=== PATIENT | female | born 1985 ===

== ENCOUNTER → 2016-05-08 | Outpatient (CLI) | payer OTHER ==
[~2016-05-08] MED LIST: CLR10 PO; MULT-513 PO; TRVHP PO
== END | disposition home or self-care (01) ==
LOC: C.PAPS 14:52
PROVIDERS: ATTEND Obstetrics & Gynecology
DX: Z01.419 Encounter for gynecological examination (general) (routine) without abnormal findings (principal)

== ENCOUNTER 2023-12-04 08:40 | Inpatient (IN) ==
--- NOTE | 2023-12-01 12:52 | Anesthesiology Consultation ---
Date of Service December 01, 2023 Assessment & Plan (1) Encounter for pre-operative examination: - Per dog sitter on 12/01/23: No known infectious disease contacts, current infectious disease symptoms in past 10 days or COVID positive test result in the past 30 days. Chart Review Chart Review: carpentry professional initiated History Surgery Operation Date: 12/07/23 07:30 Proposed Procedures p Section (Delivery of Baby Through Abdominal Incision) - Claudine Morris, Height/Weight Height: 5 ft 6 in Weight: 97.522 kg Allergies Allergy/AdvReac Type Severity Reaction Status Date / Time No Known Allergies Allergy Verified 12/01/23 12:34 Medications Home Medications Medication Instructions Recorded Confirmed Last Taken xp-cr-igzd-FA-Ca carb-vit K 1 tab PO DAILY 04/24/23 12/01/23 Unknown [Women's Multivitamin] Past Medical History Medical History (Updated 12/01/23 @ 12:51 by Tamanna Malik PA-C) Gestational diabetes with current (2023), just monitoring, no meds History of anesthesia reaction 2020, w/previous her bp dropped very low and had to have it rechecked every 2 hours following; done at [facility] Varicella vaccination hx Past Family History Family History Family/Other Breast cancer Denies family history of Ovarian cancer Colorectal cancer Past Surgical History Surgical History H/O section Social History Smoking Status: Never smoker Do You Dip or Chew Tobacco: No Hx Alcohol Use: No Hx Substance Use: No substance use type: does not use
--- NOTE | 2023-12-04 17:16 | History & Physical Report ---
Date of Service December 04, 2023 Assessment & Plan (1) Previous delivery affecting , antepartum: Plan: Plan for repeat section if not in labor at presentation to L&D. Reviewed consent in office, questions answered. History of Present Illness Chief Complaint: repeat section Primary Care Provider: Heide Short MD 38yo with EDC 12/10/23, plans for repeat section. AMA Weekly NST's @ 36 weeks Previous - plans for and default at 40w. C/S SCHEDULED FOR 12/07/[address] PHELPS C/S RESCHEDULED TO 12/04/[address] BELL C/S RESCHEDULED AGAIN TO 12/07/[address] PHELPS GBS+ in urine *Tx in labor Gestational Diabetes Growth u/s's q 4 weeks Allergies Allergy/AdvReac Type Severity Reaction Status Date / Time No Known Allergies Allergy Verified 12/04/23 10:40 Home Medications Medication Instructions Recorded Confirmed Type cl-pp-bqnd-FA-Ca carb-vit K 1 tab PO DAILY 04/24/23 12/04/23 History [Women's Multivitamin] Patient History Medical History (Updated 12/01/23 @ 12:51 by Tamanna Malik PA-C) Gestational diabetes with current (2023), just monitoring, no meds History of anesthesia reaction 2020, w/previous her bp dropped very low and had to have it rechecked every 2 hours following; done at [facility] Varicella vaccination hx Surgical History H/O section Family History Family/Other Breast cancer Denies family history of Ovarian cancer Colorectal cancer Social History (Updated 04/24/23 @ 15:14 by Gianna Serrano) Smoking Status: Never smoker Second Hand Exposure: No; Do You Dip or Chew Tobacco: No; Hx Alcohol Use: No Hx Substance Use: No Preferred Language: Slovenian Communication Ability: Effective Shell Fisherman Required: No Beliefs That Will Affect Care: None marital status: marital status details: Virgil Lowry (38) [phone] Current Living Situation: Spouse and Family Current Living Situation Comment: and mother, child, dog, bird current occupational status: employed 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 No s/s chorio or abruption. Skin: no rashes, warm and dry Psychiatric: A+Ox3, euthymic affect Coding Level of Care Code None Diagnoses Previous delivery affecting , antepartum O34.219
[2023-12-07] MEDS: LACTATED RINGER'S 1,000 ML IV SCH (05:50)
[2023-12-07] MEDS: ACETAMINOPHEN 500 MG TAB PO SCH (06:39)
[2023-12-07] MEDS ORDERED: LACTATED RINGER'S 1,000 ML IV SCH ×2 (06:45→10:50)
[2023-12-07] MEDS ORDERED: ePHEDrine sulfate 50 MG/5 ML SYR ONE (06:49)
[2023-12-07] MEDS ORDERED: DEXAMETHASONE SOD INJ 4 MG/ML VIAL ONE (06:49)
[2023-12-07] MEDS ORDERED: OXYTOCIN 10 UNITS/ML VIAL ONE (06:49)
[2023-12-07] MEDS ORDERED: KETOROLAC 30 MG/ML VIAL ONE (06:49)
[2023-12-07] MEDS ORDERED: ONDANSETRON INJ 2 MG/ML 2 ML VIAL ONE (06:49)
[2023-12-07] MEDS ORDERED: PHENYLEPHRINE 100MCG/ML 10ML SYR IV ONE (06:49)
[2023-12-07] MEDS ORDERED: MoRPHine SULFATE PF 1 MG/ML 10 ML AMP/VIAL ONE (06:50)
[2023-12-07] MEDS ORDERED: fentaNYL citrate PF 100 MCG/2 ML VIAL ONE (06:50)
[2023-12-07 07:06] LABS: Hematocrit (blood only) 33.9 % (37.0-47.0); Hemoglobin 11.6 g/dl (12.0-16.0); Mean Corpuscular Hemoglobin 29.3 pg (25.0-34.0); Mean Corpuscular Hgb Conc 34.2 g/dL (32.0-36.0); Mean Corpuscular Volume 85.6 fL (80.0-100.0); Mean Platelet Volume 9.5 fL (9.4-12.4); Platelet Count 242 K/uL (130-400); RDW Coefficient of Variation 13.2 % (11.5-14.5); Red Blood Count 3.96 M/uL (4.20-5.40); White Blood Count 7.65 K/ul (4.8-10.8)
--- NOTE | 2023-12-07 07:15 | History & Physical Bridge Note ---
Date of Service December 07, 2023 History & Physical Bridge Note I have examined the patient, reviewed the History & Physical and in the interval since the performance of the History & Physical I have noted the following changes of clinical significance: no changes noted
[2023-12-07] MEDS: ceFAZolin 2000MG 2,000 MG/15 ML SYR IV SCH (07:42)
[2023-12-07] MEDS: CITRIC ACID/SODIUM CITRATE 15 ML UDC PO SCH (07:42)
[2023-12-07] MEDS ORDERED: ePHEDrine sulfate 50 MG/ML AMP IV PRN (08:04)
[2023-12-07] MEDS ORDERED: ONDANSETRON INJ 2 MG/ML 2 ML VIAL IV PRN ×2 (08:04→10:50)
[2023-12-07] MEDS ORDERED: NALBUPHINE HCL 5 MG in SYRINGE 0 ML IV PRN (08:04)
[2023-12-07] MEDS ORDERED: PROMETHAZINE 6.25 MG/50.25 ML BAG IV PRN (08:04)
[2023-12-07] MEDS ORDERED: diphenhydrAMINE 50 MG/ML VIAL IV PRN (08:04)
[2023-12-07] MEDS ORDERED: KETOROLAC 30 MG/ML VIAL IV PRN (08:04)
[2023-12-07] MEDS ORDERED: NALOXONE HCL 0.4 MG/1 ML VIAL/CARP IV PRN (08:04)
[2023-12-07] MEDS ORDERED: HYDROmorphone INJ 0.5 MG/0.5 ML SYR IV PRN (08:04)
[2023-12-07] MEDS ORDERED: NALOXONE HCL 0.08 MG in SYRINGE 1.8 ML IV PRN (08:04)
[2023-12-07] MEDS ORDERED: NALOXONE HCL 1 MG in SODIUM CHLORIDE 0.9% 1,000 ML IV PRN (08:04)
[2023-12-07] MEDS ORDERED: LACTATED RINGER'S 500 ML IV PRN (08:04)
[2023-12-07] MEDS ORDERED: NO NARCOTICS OR SEDATIVES SCH (08:15)
[2023-12-07] MEDS ORDERED: DC INTRASPINAL MORPHINE SCH (08:15)
--- NOTE | 2023-12-07 09:03 | Operative Report ---
PG Post Operative Report Pre & Post Diagnosis Operation Date: 12/07/23 07:30 Pre: H/o x 1 Post: Same I identified the patient and participated in the time-out.: Yes Procedure Operation Date: 12/07/23 07:30 Repeat Low Transverse Section Surgeon Claudine Morris DO Body Trimmer Lester Lee MD Estimated Blood Loss 340 Findings Consistent with Post-Op Diagnosis Viable female , Apgars 8/9. Weight pending, please see nursery records. Specimens placenta, cord blood, cord gas Drains jc clear yellow Anesthesia Type Spinal Complications none Disposition Accompanied Patient To Recovery: Yes Disposition: L&D Indications 38yo @ 39 07/18, h/o x 1, AMA, GBS+, GDMA1 Description of Procedure The patient was seen in her labor and delivery room, risks benefits and alternatives to surgery were reviewed. Informed consent obtained in office. Questions were answered. She was taken to the operating room, spinal anesthesia was administered. She was then prepared and draped in the usual sterile fashion in the supine position with a leftward tilt. Timeout was confirmed. A Pfannenstiel skin incision was made through the prior scar with a scalpel, and carried through to the underlying layer of fascia. Fascia was nicked at midline, and this incision was extended bilaterally. The superior aspect of the fascial incision was grasped with Millie clamps x2, elevated off the underlying rectus abdominis muscles, and dissected sharply and bluntly. In similar fashion, the inferior aspect of the fascial incision was dissected. The rectus abdominis muscles were , and the peritoneum was entered bluntly digitally. This was extended bilaterally. The bladder flap was taken down carefully using Metzenbaum scissors. Using a new scalpel, a low transverse uterine incision was created. Clear amniotic fluid noted. The was delivered from a cephalic presentation. The head delivered, followed by shoulders and body. Spontaneous cry on the field. The cord was doubly clamped and cut, and the was handed off to the waiting farmworker vegetable. A segment was retained for cord gases. Cord blood was obtained. The placenta was delivered spontaneously intact. The uterus was exteriorized, and cleared of all clots and debris. The hysterotomy incision was reapproximated using 0 Vicryl in a running locked stitch. A second layer of the same suture was used to imbricate the incision. Posterior uterus was evaluated and normal. The uterus was returned to the abdomen, and gutters were cleared of clots and debris. Excellent hemostasis was observed. The fascial incision was reapproximated using 0 Vicryl in a running stitch. The subcutaneous tissue was irrigated, and reapproximated using 2-0 plain gut in a running stitch. The skin was reapproximated using 4-0 Vicryl in a running subcuticular stitch. Steri-Strips and a bandage were applied. The patient tolerated the procedure well, and will be taken to the recovery area in stable and good condition. I attest to the content of the Intraoperative Record and any orders documented therein. Any exceptions are noted below. OB Procedure Charges [id number]
[2023-12-07 09:06] LABS: Base Excess Cord Arterial Bld -2.2 mEq/L (-9-1.8); CO2 Cord Arterial Blood 44 mmHg (39.1-73.5); HCO3 Cord Arterial Blood 24 mmol/L (19.7-28.5); Oxygen Sat Cord Arterial Blood 67.8 % (<60); PO2 Cord Arterial Blood 34 mmHg (4.1-31.7); pH Cord Arterial Blood 7.34 (7.1-7.38)
--- NOTE | 2023-12-07 09:18 | Anesthesiology Progress Note ---
Date of Service December 07, 2023 Anesthesia Post Procedure Vital Signs Vital Signs: Temp Pulse Resp BP Pulse Ox 12/07/23 09:15 79 94 12/07/23 09:10 75 95 12/07/23 09:05 92 12/07/23 09:05 73 12/07/23 09:05 71 101/51 L 94 12/07/23 07:07 36.5 C 67 20 112/71 12/07/23 05:56 85 109/73 12/07/23 05:56 36.6 C 85 16 109/73 12/07/23 05:52 36.6 C 16 Transfer of Care Handoff Completed per policy Notes Mental Status: alert / awake / arousable and participated in evaluation Patient Amnestic to Procedure: No Nausea / Vomiting: adequately controlled Pain: adequately controlled Airway Patency, RR, SpO2: stable & adequate BP & HR: stable & adequate Hydration State: stable & adequate Neuraxial Anesthesia: was administered and sensory block is resolving Anesthetic Complications: no major complications apparent and Pt Satisfied with anesthetic care
[2023-12-07 09:21] LABS: Cord Venous Blood PCO2 52 mmHg (30.4-57.2); Cord Venous Blood pH 7.27 (7.20-7.44)
[2023-12-07 09:22] LABS: Base Excess Cord Venous Blood -3.6 mEq/L (-7.7-1.9); Cord Venous Blood HCO3 21 mmol/L (18.4-26.8); Cord Venous Blood PO2 30 mmHg (14.1-43.3); O2 Saturation Cord Venous Bld 62.7 % (<68)
[2023-12-07] MEDS: MoRPHine SULFATE PF 1 MG/ML 10 ML AMP/VIAL INT SPINAL ONE (09:50)
[2023-12-07] MEDS: SODIUM CHLORIDE 0.9% 1,000 ML IV SCH (09:50)
[2023-12-07] MEDS ORDERED: MAGNESIUM HYDROXIDE SUSP 30 ML UDC PO PRN (10:50)
[2023-12-07] MEDS ORDERED: BENZOCAINE 20% SPRY 85 APPLN/85 GM CAN EXT PRN (10:50)
[2023-12-07] MEDS ORDERED: HYDROCORTISONE ACETATE 25 MG SUPP PR PRN (10:50)
[2023-12-07] MEDS ORDERED: CALCIUM CARBONATE 500 MG CHEWABLE TAB PO PRN (10:50)
[2023-12-07] MEDS: OXYTOCIN 20 UNITS/LR 1,002 ML IV SCH (11:21)
[2023-12-07] MEDS: ACETAMINOPHEN 325 MG TAB PO SCH ×2 (13:43→20:36)
[2023-12-07] MEDS: SIMETHICONE 80 MG CHEW PO SCH (13:43)
[2023-12-07] MEDS: KETOROLAC 30 MG/ML VIAL IV SCH (14:43)
[2023-12-07] MEDS ORDERED: Nursing to Pharmacy Communication SCH (15:00)
[2023-12-07] MEDS: SENNA 8.6 MG TAB PO PRN (20:33)
[2023-12-07] MEDS: DOCUSATE SODIUM 100 MG CAP PO SCH (20:33)
[2023-12-08] MEDS ORDERED: PROMETHAZINE 12.5 MG/50.5 ML BAG IV PRN (02:04)
[2023-12-08] MEDS ORDERED: diphenhydrAMINE Capsule 25 MG CAP PO PRN (02:04)
[2023-12-08] MEDS ORDERED: HYDROmorphone INJ 0.5 MG/0.5 ML SYR IV PRN (02:04)
[2023-12-08] MEDS ORDERED: diphenhydrAMINE 50 MG/ML VIAL IV PRN (02:04)
[2023-12-08] MEDS: oxyCODONE HCL IR 5 MG TAB (IMMEDIATE RELEASE) PO PRN (03:49)
[2023-12-08 06:17] LABS: Basophils # (auto) 0.02 K/uL (0.00-0.20); Basophils % (auto) 0.2 %; Eosinophils # (auto) 0.16 K/uL (0.00-0.50); Eosinophils % (auto) 1.7 %; Hemoglobin 10.4 g/dl (12.0-16.0); Immature Granulocytes # (auto) 0.04 K/uL (0.01-0.20); Immature Granulocytes % (auto) 0.4 %; Lymphocytes # (auto) 2.33 K/uL (1.20-3.40); Lymphocytes % (auto) 24.8 %; Mean Corpuscular Hemoglobin 29.1 pg (25.0-34.0); Mean Corpuscular Hgb Conc 33.5 g/dL (32.0-36.0); Mean Corpuscular Volume 86.6 fL (80.0-100.0); Mean Platelet Volume 9.3 fL (9.4-12.4); Monocytes # (auto) 0.68 K/uL (0.11-0.59); Monocytes % (auto) 7.2 %; Neutrophils # (auto) 6.16 K/uL (1.40-6.50); Neutrophils % (auto) 65.7 %; Platelet Count 221 K/uL (130-400); RDW Coefficient of Variation 13.2 % (11.5-14.5); RDW Standard Deviation 41.6 fL (36.4-46.3); Red Blood Count 3.58 M/uL (4.20-5.40); White Blood Count 9.39 K/ul (4.8-10.8)
--- NOTE | 2023-12-08 06:29 | Obstetrical Progress Note ---
Date of Service <Milton Oliveira MD - Last Filed: 12/08/23 07:20> December 08, 2023 Assessment & Plan <Milton Oliveira MD - Last Filed: 12/08/23 07:20> (1) care and examination: POD#1: Stable, continue routine care, continue OOB and ambulation, diet as tolerated Does not feel ready for d/c yet Rh+, gbs pos, ri <Claudine Morris DO - Last Filed: 12/08/23 07:26> (1) care and examination: Subjective <Milton Oliveira MD - Last Filed: 12/08/23 07:20> Ambulation: ambulating normally Voiding: no voiding problems Passing Gas:: Yes Diet Tolerance:: regular diet Lochia:: Small Feeding Type:: breast feeding Gutierrez is a 38yo who is POD#1 s/p LTCS at term. She is passing flatus but has not had a BM. Constitutional: no fever, no chills or no sweats Respiratory: no dyspnea Cardiovascular: no chest pain, no palpitations or no calf pain Breast: no breast pain Genitourinary (female): no dysuria Neurologic: no headache(s) no changes in vision, no headaches Physical Exam <Milton Oliveira MD - Last Filed: 12/08/23 07:20> General: Alert, oriented. No acute distress. Cardiac: Regular rate and rhythm, no murmurs, rubs, or gallops. Respiratory: Clear to auscultation bilaterally, no wheezes/rales/rhonchi. No increased work of breathing. Symmetrical chest rise. No respiratory distress. Abdomen: Soft, nontender, nondistended. Bowel sounds present. Uterus: Uterine fundus firm, appropriately tender. Surgical incision clean and healing well. Lower extremities: No lower extremity edema or swelling. No deep calf pain. <Claudine Morris DO - Last Filed: 12/08/23 07:26> General: Alert, oriented. No acute distress. Cardiac: Regular rate and rhythm, no murmurs, rubs, or gallops. Respiratory: Clear to auscultation bilaterally, no wheezes/rales/rhonchi. No increased work of breathing. Symmetrical chest rise. No respiratory distress. Abdomen: Soft, nontender, nondistended. Bowel sounds present. Uterus: Uterine fundus firm, palpable below the umbilicus. Surgical dressing clean, dry, intact. Lower extremities: No lower extremity edema or swelling. No deep calf pain. Results & Data <Milton Oliveira MD - Last Filed: 12/08/23 07:20> Vital Signs (Past 12 Hours) Vital Signs Temp Pulse Resp BP Pulse Ox O2 Del Method 12/08/23 03:20 36.5 C 65 16 105/72 98 Room Air 12/08/23 02:00 97 12/08/23 01:00 97 12/08/23 00:00 97 12/07/23 23:45 36.6 C 73 16 106/72 97 Room Air 12/07/23 23:00 98 12/07/23 22:00 98 12/07/23 21:00 98 12/07/23 20:00 100 12/07/23 19:00 98 12/07/23 19:00 36.9 C 74 16 96 Room Air Laboratory Results 12/08/23 05:36 Supervising Physician <Claudine Morris DO - Last Filed: 12/08/23 07:26> Co-Signing Physician Notes Resident Physician Supervision Note: I interviewed and examined the patient. Discussed with Dr. Oliveira and agree with findings and plan as documented in the note. Any exceptions or clarifications are listed here: POD#1 doing well. Continue routine postop care. Incision CDI. Documented By: Claudine Morris DO Resident Activity Tracking <Milton Oliveira MD - Last Filed: 12/08/23 07:20> Resident Involvement: Resident Care Provided Care Provided: Adult Hospital Medicine
[2023-12-08] MEDS: PRENATAL VITAMIN 1 TAB PO SCH (08:47)
[2023-12-08] MEDS: FERROUS SULFATE 325 MG TAB PO SCH (08:47)
[2023-12-08] MEDS ORDERED: bisacodyL 5 MG TABEC PO SCH (20:00)
[2023-12-09] MEDS: DICLOFENAC SODIUM 25 MG TABDR PO PRN (01:06)
[2023-12-09 06:57] LABS: Hematocrit (blood only) 30.2 % (37.0-47.0); Hemoglobin 10.2 g/dl (12.0-16.0)
--- NOTE | 2023-12-09 07:47 | Obstetrical Progress Note ---
Date of Service <Milton Oliveira MD - Last Filed: 12/09/23 08:42> December 09, 2023 Assessment & Plan <Milton Oliveira MD - Last Filed: 12/09/23 08:42> (1) care and examination: POD#2: Stable, continue routine care, continue OOB and ambulation, diet as tolerated Does not feel ready for d/c yet Rh+, gbs pos, ri <John Napier MD - Last Filed: 12/10/23 16:17> (1) care and examination: Subjective <Milton Oliveira MD - Last Filed: 12/09/23 08:42> Ambulation: ambulating normally Voiding: no voiding problems Passing Gas:: Yes Diet Tolerance:: regular diet Lochia:: Small Feeding Type:: breast feeding Gutierrez is a 38yo who is POD#2 s/p LTCS at term. Doing well, reports pain well controlled w diclofenac but she is for her h/o gastritis w NSAIDs. Still has not had BM but is passing gas. Constitutional: no fever, no chills or no sweats Respiratory: no dyspnea Cardiovascular: no chest pain, no palpitations or no calf pain Breast: no breast pain Genitourinary (female): no dysuria Neurologic: no headache(s) no changes in vision, no headaches Physical Exam <Milton Oliveira MD - Last Filed: 12/09/23 08:42> General: Alert, oriented. No acute distress. Cardiac: Regular rate and rhythm, no murmurs, rubs, or gallops. Respiratory: Clear to auscultation bilaterally, no wheezes/rales/rhonchi. No increased work of breathing. Symmetrical chest rise. No respiratory distress. Abdomen: Soft, nontender, nondistended. Bowel sounds present. Uterus: Uterine fundus firm, appropriately tender. Surgical incision clean and healing well. Lower extremities: No lower extremity edema or swelling. No deep calf pain. Results & Data <Milton Oliveira MD - Last Filed: 12/09/23 08:42> Vital Signs (Past 12 Hours) Vital Signs Temp Pulse Resp BP Pulse Ox O2 Del Method 12/08/23 22:55 36.5 C 93 H 16 135/81 99 Room Air Laboratory Results 12/09/23 06:23 Supervising Physician <John Napier MD - Last Filed: 12/10/23 16:17> Co-Signing Physician Notes Patient seen with resident and agree with the above findings and plan. Routine care Resident Activity Tracking <Milton Oliveira MD - Last Filed: 12/09/23 08:42> Resident Involvement: Resident Care Provided Care Provided: Adult Hospital Medicine
[2023-12-09] MEDS ORDERED: bisacodyL 10 MG SUPP PR PRN (08:46)
[2023-12-09] MEDS ORDERED: Nursing to Pharmacy Communication SCH (10:00)
[2023-12-09] MEDS: ACETAMINOPHEN 325 MG TAB PO PRN (12:19)
[2023-12-09 21:22] VITALS: RESP 18
[2023-12-10] MEDS: DIPHTHER/TETAN/PERTUS Vaccine (Tdap, Adol/Adult) 0.5mL IM ONE (00:20)
--- NOTE | 2023-12-10 05:56 | Obstetrical Progress Note ---
Date of Service <Milton Oliveira MD - Last Filed: 12/10/23 07:03> December 10, 2023 Assessment & Plan <Milton Oliveira MD - Last Filed: 12/10/23 07:03> (1) care and examination: POD#3: Stable, continue routine care, d/c today Rh+, gbs pos, ri <Mali Green MD - Last Filed: 12/10/23 07:21> (1) care and examination: Subjective <Milton Oliveira MD - Last Filed: 12/10/23 07:03> Ambulation: ambulating normally Voiding: no voiding problems Passing Gas:: Yes Diet Tolerance:: regular diet Lochia:: Small Feeding Type:: breast feeding Gutierrez is a 38yo who is POD#2 s/p LTCS at term. Doing well, reports pain well controlled w diclofenac, does report some pain/tingling in legs only while breast feeding. Constitutional: no fever, no chills or no sweats Respiratory: no dyspnea Cardiovascular: no chest pain, no palpitations or no calf pain Breast: no breast pain Genitourinary (female): no dysuria Neurologic: no headache(s) Physical Exam <Milton Oliveira MD - Last Filed: 12/10/23 07:03> General: Alert, oriented. No acute distress. Cardiac: Regular rate and rhythm, no murmurs, rubs, or gallops. Respiratory: Clear to auscultation bilaterally, no wheezes/rales/rhonchi. No increased work of breathing. Symmetrical chest rise. No respiratory distress. Abdomen: Soft, nontender, nondistended. Bowel sounds present. Uterus: Uterine fundus firm, appropriately tender. Surgical incision clean and healing well. Lower extremities: No lower extremity edema or swelling. No deep calf pain. Results & Data <Milton Oliveira MD - Last Filed: 12/10/23 07:03> Vital Signs (Past 12 Hours) Vital Signs Temp Pulse Resp BP Pulse Ox O2 Del Method 12/09/23 23:15 36.5 C 76 18 136/84 98 Room Air 12/09/23 20:40 36.4 C L 88 18 127/83 98 Room Air Supervising Physician <Mali Green MD - Last Filed: 12/10/23 07:21> Co-Signing Physician Notes Resident Physician Supervision Note: I interviewed and examined the patient. Discussed with Dr. Oliveira and agree with findings and plan as documented in the note. Any exceptions or clarifications are listed here: POD3 s/p rLTCS, doing well. Stable for dc home, rx for oxy and diclofenac sent Documented By: Mali Green MD Resident Activity Tracking <Milton Oliveira MD - Last Filed: 12/10/23 07:03> Resident Involvement: Resident Care Provided Care Provided: Adult Hospital Medicine
[2023-12-10 08:01] VITALS: BP 116/79; PULSE 78; TEMP 98.1; O2SAT 96
--- NOTE | 2023-12-15 08:58 | Discharge Summary ---
Date of Service December 15, 2023 Admission HPI Per Admitting Provider 38yo with EDC 12/10/23, plans for repeat section. AMA Weekly NST's @ 36 weeks Previous - plans for and default at 40w. C/S SCHEDULED FOR 12/07/[address] MORRIS C/S RESCHEDULED TO 12/04/[address] BELL C/S RESCHEDULED AGAIN TO 12/07/[address] MORRIS GBS+ in urine *Tx in labor Gestational Diabetes Growth u/s's q 4 weeks Admission Exam (Per Admitting) Constitutional WD/WN, vitals as above Respiratory normal respiratory effort, lungs clear to auscultation no respiratory distress Cardiovascular Rate/Rhythm: regular rate and regular rhythm Gastrointestinal (Abdomen) Inspection/Auscultation: abdomen normal to inspection Percussion/Palpation: abdomen soft; abdomen nontender Skin no rashes, warm and dry Psychiatric A+Ox3, euthymic affect Discharge Data Consultations 12/07/23 05:32 Consult Anesthesiology Stat Procedures Performed Operation Date: 12/07/23 07:30 Actual Procedures p Section delivery of a viable female in nguyen at 0813 - Claudine Morris DO Hospital Course (1) care and examination: POD#2: Stable, continue routine care, continue OOB and ambulation, diet as tolerated Does not feel ready for d/c yet Rh+, gbs pos, ri Coding Level of Care Code None Diagnoses care and examination Z39.2
== END 2023-12-10 12:15 | disposition home or self-care (01) | DRG 787 ==
LOC: 4S1 12-07 05:47 → EDSTATUS 12-07 07:30 → 4E2 12-07 11:30
DX: Z37.0 Single live birth; O34.211 Maternal care for low transverse scar from previous cesarean delivery; O24.429 Gestational diabetes mellitus in childbirth, unspecified control; Z3A.40 40 weeks gestation of pregnancy; B95.1 Streptococcus, group B, as the cause of diseases classified elsewhere; O98.82 Other maternal infectious and parasitic diseases complicating childbirth